=== PATIENT | female | born 1940 | race Caucasian/White ===

== ENCOUNTER 2017-11-27 05:33 | Day surgery (SDC) | payer OTHER ==
[~2017-11-27] VITALS: Ht 154.9 cm; Wt 48.0 kg
[~2017-11-27 05:33] MED LIST: CALCIUM 500 +1 EACH PO; LO-DOSE ASPIRIN81 M1 PO; PROBIOTIC1 EAC1 PO; SYMBICORT60 INHALAT IH; VENTOLIN HFA18 GM IH; XANAX0.25 MG PO
[2017-11-27 05:50] VITALS: BP 126/58
[2017-11-27] MEDS ORDERED: NORCO 5/3251 TABLET PO (09:00)
[2017-11-27 09:50] VITALS: BP 126/47
== END 2017-11-27 10:31 | disposition home or self-care (01) ==
LOC: SDC 05:33
PROC: B5161ZA Fluoroscopy of Right Subclavian Vein using Low Osmolar Contrast, Guidance (ICD-10-PCS; principal; 2017-11-27)
PROC: 0JH60WZ Insertion of Totally Implantable Vascular Access Device into Chest Subcutaneous Tissue and Fascia, Open Approach (ICD-10-PCS; principal; 2017-11-27)
PROC: 05H533Z Insertion of Infusion Device into Right Subclavian Vein, Percutaneous Approach (ICD-10-PCS; principal; 2017-11-27)
DX: Z45.2 Encounter for adjustment and management of vascular access device (principal); I87.8 Other specified disorders of veins; C17.0 Malignant neoplasm of duodenum; J44.9 Chronic obstructive pulmonary disease, unspecified; F41.1 Generalized anxiety disorder; Z87.891 Personal history of nicotine dependence; Z79.82 Long term (current) use of aspirin; Z88.2 Allergy status to sulfonamides
CPT/HCPCS: 71045; 94640; C1751; J0690; J2405; J3010